=== PATIENT | female | born 1985 ===

== ENCOUNTER 2016-12-21 03:13 | Emergency (ER) | payer SELFPAY ==
[2016-12-21 03:35] VITALS: BP 122/67; PULSE 78; RESP 16; TEMP 98; O2SAT 99
--- NOTE | 2016-12-21 03:59 | ED PDOC ---
"HPI: Abdomen Time Seen by Provider: 12/21/16 03:28 Chief Complaint (Nursing): Abdominal Pain Chief Complaint (Provider): Abdominal Pain History Per: Patient History/Exam Limitations: language barrier (Vietnamese ) Onset/Duration Of Symptoms: Hrs (Since 10 p.m. on 12/20/16) Outside of [place] travel?: No Current Symptoms Are (Timing): Still Present Context: Food Severity: Severe Location Of Pain/Discomfort: Periumbilical Quality Of Discomfort: Cramping, Pressure Associated Symptoms: Nausea, Vomiting (non billious 4 episodes vomitus with food content ), Diarrhea (watery 6 episodes ). denies: Loss Of Appetite Exacerbating Factors: None Alleviating Factors: None Last Bowel Movement: Today Additional Complaint(s): Pt. presents for evaluation of abdominal pain associated with nausea, vomiting, diarrhea starting 10 p.m. Pt. states she had dinner consisting of dumplings filled with port. The abdominal pain is periumbilical in a band like manner, and not radiating to back, described as cramps. The vomit was non-bloody and non -billious 6 episodes note. Pt. also had had six episodes of diarrhea described as non-bloody and watery. Pt. denies any sick contacts, recent travel, or any family members with similar symptoms. PMD: none Abnormal Vaginal Bleeding: No Last Menstral Period: Currently on her period Past Medical History Vital Signs: Last Vital Signs Temp 98.0 F 12/21/16 03:33 Pulse 78 12/21/16 03:33 Resp 16 12/21/16 03:33 BP 122/67 12/21/16 03:33 Pulse Ox 99 12/21/16 04:17 - Medical History PMH: No Chronic Diseases - Surgical History Surgical History: No Surg Hx - Family History Family History: States: Unknown Family Hx - Living Arrangements Living Arrangements: With Family - Social History Current smoker - smoking cessation education provided: No Alcohol: None Drugs: Denies - Home Medications Home Medications: Ambulatory Orders Medication Instructions Recorded Dicyclomine [Bentyl] 20 mg PO Q12 PRN #20 tab 12/21/16 Ondansetron ODT [Zofran ODT] 4 mg PO Q6 PRN #16 odt 12/21/16 - Allergies Allergies/Adverse Reactions: Allergies Allergy/AdvReac Type Severity Reaction Status Date / Time Penicillins Allergy URTICARIA Verified 12/21/16 04:04 Review of Systems Constitutional: Negative for: Fever, Chills Eyes: Negative for: Pain, Vision Change ENT: Negative for: Ear Pain, Ear Discharge Cardiovascular: Negative for: Chest Pain, Palpitations Respiratory: Negative for: Cough, Shortness of Breath Gastrointestinal: Positive for: Nausea, Vomiting, Abdominal Pain, Diarrhea. Negative for: Constipation, Melena, Hematochezia, Hematemesis, Rectal Pain Genitourinary Female: Negative for: Dysuria, Frequency Musculoskeletal: Negative for: Neck Pain, Shoulder Pain Skin: Negative for: Rash, Lesions Neurological: Negative for: Weakness, Numbness Psych: Negative for: Anxiety, Depression Physical Exam - Reviewed Vital Signs Reviewed: Yes (WNL ) - Physical Exam Appears: Positive for: Uncomfortable Skin: Positive for: Normal Color, Warm, Dry Eye Exam: Negative for: Conjunctival injection, Scleral icterus ENT: Positive for: Normal ENT Inspection Neck: Positive for: Painless ROM, Supple Cardiovascular/Chest: Positive for: Regular Rate, Rhythm. Negative for: Murmur Respiratory: Positive for: Normal Breath Sounds. Negative for: Respiratory Distress Gastrointestinal/Abdominal: Positive for: Tenderness (on palpation of jessie- umbilical area ) Back: Negative for: L CVA Tenderness, R CVA Tenderness Extremity: Negative for: Tenderness, Pedal Edema Neurologic/Psych: Positive for: Alert, Oriented - Laboratory Results Result Diagrams: 12/21/16 03:51 12/21/16 03:51 Urine POC: Negative Urine dip results: Positive for: Blood (large- currenlty on ehr period ), Protein (large- currenlty on ehr period ). Negative for: Leukocyte Esterase, Nitrate, Ketones, Glucose, Bilirubin - ECG O2 Sat by Pulse Oximetry: 99 - Progress ED Course And Treament: Urine preg Urine dip CBC CMP Lipase I.V. NS bolus Zofran 4mg Pepcid 20mg Bentyl 20 mg po Re-evaluation Time: 06:15 Condition: Improved Medical Decision Making Medical Decision Making: Pt. is a 31 y.o. female with no significant PMhx or PShx comes to the E.R. for evaluation acute abdominal pain after having dinner consisting of pork filled dumpling. Abdominal pain associated with nausea, vomiting, and diarrhea. Pt. with subsequent negative urine test with and normal CT scan of abdomen. Pt. improved and asymptomatic wishing to go home. pt. to return if pain worsens and no relief with zofran and bentyl. Pt. also given a referral to [facility] in [place]. EXAM: CT Abdomen and Pelvis With Intravenous Contrast CLINICAL HISTORY: 31 years old, female; Pain; Abdominal pain; Tenderness; Right lower quadrant ( rlq); Additional info: Abdominal pain rlq, llq TECHNIQUE: Axial computed tomography images of the abdomen and pelvis with intravenous contrast. All CT scans at this facility use one or more dose reduction techniques, viz.: automated exposure control; ma/kV adjustment per patient size (including targeted exams where dose is matched to indication; i.e. head); or iterative reconstruction technique. 643 images are submitted. Coronal and sagittal reformatted images were created and reviewed. CONTRAST: 95 mL of omnipaque 300 administered intravenously. COMPARISON: No relevant prior studies available. FINDINGS: Lower thorax: There is bibasilar atelectasis. Small hiatal hernia. ABDOMEN: Liver: Fatty liver. Gallbladder and bile ducts: Partially contracted gallbladder. Pancreas: Unremarkable. No mass. No ductal dilation. Spleen: Unremarkable. No splenomegaly. Adrenals: Unremarkable. No mass. Kidneys and ureters: Unremarkable. No solid mass. No hydronephrosis. Stomach and bowel: There is fluid filled small bowel loops with bowel wall thickening seen on image 74 series 2 involving the mid to distal small bowel and terminal ileum suspicious for infectious versus inflammatory bowel disease. Diverticulosis. No obstruction. Appendix: Normal appendix. PELVIS: Bladder: Partially distended bladder. ELIZABETH FORD | Preliminary Radiology Report HEAD AND NECK SURGEON (QA) DISCREPANCY? If there is a discrepancy between the preliminary and final interpretation, please notify [facility] via [email or web address]. If you do not have access to our QA portal, call our QA team at [phone] CONFIDENTIALITY STATEMENT This report is intended only for the use of the referring physician, and only in accordance with law, If you received this in error, call [phone] Page 2 of 2 Reproductive: Uterus is seen. Bilateral ovarian follicles. ABDOMEN and PELVIS: Intraperitoneal space: Small amount of free pelvic fluid. No free air. Bones/joints: No acute fracture. No dislocation. Soft tissues: There is a fat-containing umbilical hernia. Vasculature: Unremarkable. No abdominal aortic aneurysm. Lymph nodes: Multiple subcentimeter mesenteric and ileocolic lymph nodes. Findings are nonspecific but may represent mesenteric adenitis. IMPRESSION: 1. There is fluid filled small bowel loops with bowel wall thickening seen on image 74 series 2 involving the mid to distal small bowel and terminal ileum suspicious for infectious versus inflammatory bowel disease. 2. small amount of free pelvic fluid. Thank you for allowing us to participate in the care of your patient. Dictated and Authenticated by: Ester Peraza MD 12/21/2016 5:44 AM Eastern Time ([place] & [place]) Disposition - Clinical Impression Clinical Impression: Gastroenteritis - Patient ED Disposition Is Patient to be Admitted: No Discussed With DrRupali: Mahesh Bullard - Disposition Referrals: Javier Aguirre DO [Emergency Midlevel Provider] - [facility] [Outside] Disposition: Routine/Home Disposition Time: 06:15 Condition: STABLE Prescriptions: Dicyclomine [Bentyl] 20 mg PO Q12 PRN #20 tab PRN Reason: abd pain/diarrhea Ondansetron ODT [Zofran ODT] 4 mg PO Q6 PRN #16 odt PRN Reason: Nausea/Vomiting Instructions: Gastroenteritis (ED) Forms: [facility] ([place]an) Print Language: WELSH"
[2016-12-21] MEDS: Sodium Chloride 0.9% 1,000 ML IV SCH ×2 (04:18→05:00)
[2016-12-21 04:26] LABS: ALKALINE PHOSPHATASE 130 U/L (38-126); ALT/SGPT 42 U/L (9-52); AST/SGOT 29 U/L (14-36); BILIRUBIN,TOTAL 0.2 mg/dl (0.2-1.3); BLOOD UREA NITROGEN 16 mg/dl (7-17); CALCIUM 8.8 mg/dL (8.4-10.2); CARBON DIOXIDE 23 mmol/L (22-30); CHLORIDE 106 mmol/L (98-107); GFR AFRICAN-AMERICAN > 60; GLUCOSE,RANDOM 92 mg/dL (65-105); LIPASE 68 U/L (23-300); POTASSIUM 3.7 MMOL/L (3.6-5.0); SODIUM 144 mmol/l (132-148); TOTAL PROTEIN 7.6 G/DL (6.3-8.2)
[2016-12-21 04:33] LABS: BASO % 0.1 % (0.0-2.0); EOS # 0.1 K/uL (0.0-0.7); EOS % 0.7 % (0.0-4.0); HEMATOCRIT 42.8 % (34.0-47.0); LYMPH # 1.2 K/uL (1.0-4.3); LYMPH % 7.4 % (20.0-40.0); MEAN CELL VOLUME 94.3 fl (81.0-99.0); MEAN CORPUSCULAR HEMOGLOBIN 30.7 pg (27.0-31.0); MEAN CORPUSCULAR HGB CONC 32.6 g/dL (33.0-37.0); MEAN PLATELET VOLUME 10.2 fl (7.2-11.7); MONO # 1.1 K/uL (0.0-0.8); NEUT # 13.1 K/uL (1.8-7.0); NEUT % 84.8 % (50.0-75.0); PLATELET COUNT 190 K/uL (130-400); RED CELL DISTRIBUTION WIDTH 13.4 % (11.5-14.5); WHITE BLOOD COUNT 15.5 K/uL (4.8-10.8)
[2016-12-21 04:35] LABS: ALB/GLOB RATIO 1.5 (1.0-2.1)
[2016-12-21] MEDS ORDERED: Sodium Chloride 0.9% 50 ML IV ONE (05:04)
[2016-12-21] MEDS ORDERED: Iohexol 300 100 ML IJ ONE (05:04)
[2016-12-21 06:50] LABS: TOTAL CELLS COUNTED 100
[2016-12-21 06:51] LABS: NEUTROPHIL 80 % (42-75)
--- NOTE | 2016-12-21 09:13 | CT ---
PROCEDURE: CT Abdomen and Pelvis with contrast HISTORY: abdominal pain RLQ, LLQ COMPARISON: None. TECHNIQUE: Contrast dose: 95 milliliters Omnipaque Radiation dose: Total exam DLP = 980 mGy-cm. This CT exam was performed using one or more of the following dose reduction techniques: Automated exposure control, adjustment of the mA and/or kV according to patient size, and/or use of iterative reconstruction technique. FINDINGS: LOWER THORAX: No infiltrate or effusion. No pneumothorax. Visualized distal esophagus is unremarkable. No pericardial effusion is seen. LIVER: Liver slightly fatty infiltrated, without evidence of focal mass or intrahepatic ductal dilatation. GALLBLADDER AND BILE DUCTS: Unremarkable. PANCREAS: Unremarkable. No gross lesion or ductal dilatation. SPLEEN: Unremarkable. ADRENALS: Unremarkable. No mass. KIDNEYS AND URETERS: Unremarkable. No hydronephrosis. No solid mass. VASCULATURE: Unremarkable. No aortic aneurysm. BOWEL: Visualized stomach is unremarkable as well as the duodenum. There is evidence of mildly dilated and fluid-filled mid the distal ileal bowel loops with some extension towards the terminal ileal region. There is mild associated fat stranding of the mesenteric and possible mild fold thickening associated with the fluid-filled small bowel loops. Findings are suggestive of enteritis of either infectious or inflammatory etiology. No transition zone is appreciated. No appreciable closed loop bowel obstruction is noted. No twisting of the mesenteric is clearly seen. Visualized colon is unremarkable without colonic wall thickening or pericolonic inflammatory change. APPENDIX: Normal appendix. PERITONEUM: A few small scattered mesenteric lymph nodes are appreciated. This could be related to the inflammatory process involving the small bowel or a mild amount of superimposed mesenteric adenitis. Minimal amount of ascites is appreciated in the lower pelvis. No focal fluid collection to suggest abscess. LYMPH NODES: No retroperitoneal adenopathy, pelvic adenopathy, or inguinal adenopathy is seen. BLADDER: Unremarkable. REPRODUCTIVE: Unremarkable. BONES: No acute fracture. OTHER FINDINGS: None. IMPRESSION: Nonspecific but abnormal fluid-filled mid the distal ileal loops which are mildly dilated. There is some mild adjacent inflammatory change of the mesenteric as well as some probable enhancement of the wall the small bowel with mild fold thickening. This appears to probably extend to the terminal ileal region. No involvement of the cecum is seen. No appreciable transition zone is identified to suggest bowel obstruction. Findings are more than likely related to enteritis of infectious or inflammatory etiology. Minimal amount of fluid in the pelvis. No focal fluid collection to suggest abscess. No free intraperitoneal air. This agrees with preliminary report provided by the on-call radiologist.
== END 2016-12-21 06:19 | disposition home or self-care (01) ==
LOC: H.ER 03:13
DX: K52.9 Noninfective gastroenteritis and colitis, unspecified (principal); Z88.0 Allergy status to penicillin
CPT/HCPCS: 74177; 80053; 81025; 83690; 85025; 96361; 96374; 96375; 99283; J2405; J7040; Q9967